=== PATIENT | female | born 1955 | race Hispanic/Latino ===

== ENCOUNTER 2020-02-25 13:23 | Observation (INO) | payer OTHER ==
[~2020-02-25] VITALS: Ht 157.5 cm; Wt 63.5 kg
--- NOTE | 2020-02-25 14:38 | Emergency Department Note ---
History of Present Illnes History of Present Illness Chief Complaint: Chest Pain History of Present Illness This is a 65 year old female hx diabetes c/o chest pressure on and off for 3 da ys . 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 Any updates have been documented here. Past Medical History Recent Fever: No Clinical Suspicion of Infectio: No New/Unexplained Change in Ment: No Past Medical History: Diabetes Past Surgical History: None Social History Smoking Cessation: Never Smoker Counseling Performed: No Alcohol Use: Social Any Illegal Drug Use: No TB Exposure/Symptoms: No Physically hurt or threatened: No Family History Family history of heart diseas: No Other Any Pre-Existing Lines (PICC,: No Review of Systems Review of Systems Constitutional: Reports as per HPI EENTM: Reports no symptoms Cardiovascular: Reports chest pain Respiratory: Reports no symptoms Gastrointestinal: Reports no symptoms Genitourinary: Reports no symptoms Musculoskeletal: Reports no symptoms Integumentary: Reports no symptoms Neurological: Reports no symptoms Psychological: Reports no symptoms Endocrine: Reports no symptoms Hematological/Lymphatic: Reports no symptoms Physical Exam Related Data Allergies: Coded Allergies: No Known Allergies (Unverified , 02/25/20) Vital signs reviewed: Yes Physical Exam CONSTITUTIONAL Constitutional: Present well-developed, Present well-nourished HENT HENT: Present normocephalic, Present atraumatic, Present oropharynx clear/moist, Present nose normal HENT L/R: Present left ext ear normal, Present right ext ear normal EYES Eyes: Reports PERRL, Reports conjunctivae normal NECK Neck: Present ROM normal PULMONARY Pulmonary: Present effort normal, Present breath sounds normal CARDIOVASCULAR Cardiovascular: Present regular rhythm, Present heart sounds normal, Present capillary refill normal, Present normal rate GASTROINTESTINAL Abdominal: Present soft, Present nontender, Present bowel sounds normal GENITOURINARY Genitourinary: Present exam deferred SKIN Skin: Present warm, Present dry MUSCULOSKELETAL Musculoskeletal: Present ROM normal NEUROLOGICAL Neurological: Present alert, Present oriented x 3, Present no gross motor or sensory deficits PSYCHOLOGICAL Psychological: Present mood/affect normal, Present judgement normal Results Laboratory Lab results reviewed: Yes Laboratory comments Cardiac markers normal, ddimer ok Imaging Imaging results reviewed: Yes Imaging Comments chest x ray wnl Procedures 12 Lead ECG Interpretation ECG Interpretation : ECG: ECG 1 Date: Feb 25, 2020 Time: 14:18 Prior ECG tracings: reviewed Rhythm: sinus rhythm Rate: normal QRS axis: normal ST segments normal: Yes Clinical Impression: normal ECG Critical Care Time Total Critical Care Time (min): 45 Time ED Physician saw patient: 15:10 Critcal care necessary due to: cardiac failure, other (unstable angina, treated with Lovenox, nitro, ASA, case discussed with Dr Vargas occupational therapy director in patient room) Critcal care time spent by me: develop tx plan w patient/surrogate, discussion w consultants, discussion w primary provider, evaluation patient response to tx, examination of patient, obtaining hx from patient/surrogate, order/perform tx or interventions, order/review laboratory studies, order/review radiographic studies, pulse oximetry, re-evaluation of patient condition Assessment & Plan Medical Decision Making MDM typical chest pain, high risk factor such as age, Diabetes Reassessment Reassessment time: 16:05 Reassessment still has c/p Assessment & Plan Final Impression: (1) Unstable angina Depart Disposition: ADMITTED Home Meds Reported Medications Dapagliflozin/Metformin HCl (Xigduo Xr 5 mg-1,000 mg Tablet) 1 Each Tab.bp.24h, BID 02/25/20 Atorvastatin Calcium (ATORVASTATIN CALCIUM) 20 Mg Tablet, 40 MG PO HS, #30 TAB 02/25/20 Medications in the ED Lovenox, nitro, asa, BB, tylenol. Physician Attestation Provider Attestation high risk for CAD, case d/c with Dr Chairez and ABNER Lew MD Feb 25, 2020 14:38
[2020-02-25] MEDS ORDERED: FAMOTIDINE 20 MG/2 ML VIAL IV ONE (14:45)
[2020-02-25] MEDS ORDERED: ACETAMINOPHEN 325 MG TAB PO ONE (14:45)
[2020-02-25] MEDS ORDERED: NITROGLYCERIN 2% OINT 1 GM PKT TOP ONE (14:45)
--- NOTE | 2020-02-25 15:21 | Diagnostic Imaging Report ---
EXAMINATION: CXR 2 VIEW - HOPD INDICATION: Chest pain COMPARISON: None FINDINGS: LINES/TUBES:None LUNGS:The lungs are well-inflated. No focal consolidation or pulmonary edema. PLEURA:No pleural effusion or pneumothorax. MEDIASTINUM:The cardiomediastinal silhouette appears normal in size and shape. Atherosclerotic calcifications of the thoracic aorta. BONES/SOFT TISSUES:No acute osseous injury. ABDOMEN:No free air under the diaphragm. IMPRESSION: No focal pneumonia or pulmonary edema. Signed by: Yashira Medina MD on 02/25/2020 3:18 PM
[2020-02-25] MEDS ORDERED: ASPIRIN 81 MG CHEW TAB PO ONE (16:15)
[2020-02-25] MEDS ORDERED: ONDANSETRON HCL INJ 2MG/ML 2ML 2 MG/ML VIAL IV PRN ×2 (16:15→17:15)
[2020-02-25] MEDS ORDERED: SODIUM CHLORIDE FLUSH 10 ML SYR INJ PRN (16:15)
[2020-02-25] MEDS ORDERED: MORPHINE SULFATE 2 MG/ML SYR 1ML IV PRN (16:15)
[2020-02-25] MEDS ORDERED: FAMOTIDINE 20 MG TAB PO SCH (16:15)
[2020-02-25] MEDS ORDERED: DEXTROSE 50% SYRINGE 50 ML IV PRN (16:30)
[2020-02-25] MEDS: INSULIN REGULAR, HUMAN 100 UNIT/1 ML 3ML VIAL SQ SCH ×2 (16:30→21:00)
[2020-02-25] MEDS ORDERED: METOPROLOL TARTRATE 50 MG TAB ONE (16:31)
[2020-02-25] MEDS: METOPROLOL TARTRATE 25 MG TAB PO SCH (16:35)
--- NOTE | 2020-02-25 16:59 | NUR ---
[facility] contacted at this time for transport to [facility] for admission. ETA 35-45 min.
[2020-02-25] MEDS ORDERED: XIGDUO XR 5 MG1 EAC1 (17:07)
[2020-02-25] MEDS ORDERED: ATORVASTATIN CA20 MG PO (17:07)
--- NOTE | 2020-02-25 17:11 | NUR ---
Report to ALLYSON Aguiar
[2020-02-25] MEDS ORDERED: ACETAMINOPHEN 325 MG TAB PO PRN (17:15)
[2020-02-25] MEDS ORDERED: METOPROLOL TARTRATE INJ 1 MG/ML VIAL IV PRN (17:15)
[2020-02-25] MEDS ORDERED: ENOXAPARIN SOD INJ 60 MG/0.6 ML SYR SC ONE (17:45)
[2020-02-25] MEDS: NITROGLYCERIN 2% OINT 1 GM PKT TOP SCH (18:00)
--- NOTE | 2020-02-25 19:00 | NUR ---
RECEIVED PATIENT IN BEDSIDE SHIFT REPORT. PATIENT RESTING IN BED AT THIS TIME. NO CHEST PAIN REPORTED. NO S&S OF DISTRESS NOTED. BED LOCKED IN LOWEST POSITION, SIDE RAILS UPX2, CALL LIGHT IN REACH.
[2020-02-25 19:45] VITALS: BP 117/59
[2020-02-25 20:00] VITALS: BP 117/59
--- NOTE | 2020-02-25 20:58 | NUR ---
Cardiology Consult Dictation# [id number]
[2020-02-25] MEDS ORDERED: SIMVASTATIN 40 MG TAB PO SCH (21:00)
[2020-02-25 21:09] LABS: CREATINE KINASE 52 IU/L (29-168)
--- NOTE | 2020-02-25 21:50 | NUR ---
PATIENT SIGNED CONSENT FOR STRESS TEST AT THIS TIME.
--- NOTE | 2020-02-25 22:15 | Consultation ---
DATE OF CONSULTATION: 02/25/2020 Cardiology Consultation REQUESTING PHYSICIAN: Dr. Soriano. REASON FOR CONSULTATION: Chest pain. HISTORY OF PRESENT ILLNESS: This is a 65-year-old woman with history of diabetes mellitus, who presents with complaints of chest pain. The patient reports that she developed chest tightness and pressure on Tuesday evening. This pain occurred intermittently, lasting approximately 5 minutes at a time. She does note this pain is better with sitting up and can be brought on by physical activity. She denies any shortness of breath, nausea, or diaphoresis. There was no radiation. In the ER, the patient reports she was given Pepcid with resolution of her chest pain. REVIEW OF SYSTEMS: Negative except as per HPI. PAST MEDICAL HISTORY: Diabetes mellitus. PAST SURGICAL HISTORY: Denies. ALLERGIES: NO KNOWN DRUG ALLERGIES. MEDICATIONS: Please see medication list. SOCIAL HISTORY: No tobacco, alcohol, or illicit drugs. FAMILY HISTORY: Denies. PHYSICAL EXAMINATION: VITAL SIGNS: Temperature 98.5 degrees, pulse 89, respiratory rate 16, blood pressure 154/73, and oxygen saturation 98%. GENERAL: Awake, alert, well-developed, well-nourished. HEENT: Normocephalic, atraumatic. Pupils equal. No scleral icterus. NECK: Supple. No thyromegaly or cervical lymphadenopathy. No carotid bruits. LUNGS: Clear to auscultation bilaterally. No wheezes or crackles. CARDIOVASCULAR: Normal rate, regular rhythm. No murmur. Normal S1, S2. ABDOMEN: Soft, nontender. EXTREMITIES: No edema. NEUROLOGIC: Nonfocal exam. DIAGNOSTIC DATA: Chest x-ray, no focal pneumonia or pulmonary edema. EKG, normal sinus rhythm, normal ECG. IMPRESSION: 1. Chest pain. 2. Diabetes mellitus. 3. Elevated blood pressure. RECOMMENDATIONS: Trend troponin to rule out myocardial infarction. The patient's chest pain has atypical features, but does have some concerning features. Nuclear stress test is indicated to evaluate for ischemia. Echocardiogram has been ordered. Obtain fasting lipid panel. Assess blood pressure response to initiation of metoprolol and lisinopril, titrate as necessary to achieve blood pressure control. Further records pending test results. Thank you for this consult. We will continue to follow. Veronica Pascal MD ABS/MODL /[id number]
[2020-02-25 22:48] VITALS: BP 117/59
[2020-02-26] VITALS: BP 114/59
[2020-02-26 01:45] LABS: CHOL/HDL RATIO 3.5 (3.0-3.6)
[2020-02-26 02:05] LABS: CREATINE KINASE 51 IU/L (29-168)
[2020-02-26 04:00] VITALS: BP 115/68
[2020-02-26] MEDS: METOPROLOL TARTRATE 25 MG TAB PO SCH ×2 (04:03→18:21)
[2020-02-26 05:52] LABS: BASOPHILS % 0.5 % (0.0-1.0); EOSINOPHILS % 0.9 % (0.0-6.0); HEMATOCRIT 40.6 % (34.2-44.1); HEMOGLOBIN 13.2 g/dL (12.0-16.0); MEAN CORPUSCULAR HEMOGLOBIN 30.5 pg (28-32); MEAN CORPUSCULAR HGB CONC 32.5 g/dL (31-35); MEAN CORPUSCULAR VOLUME 93.8 fL (81-99); MONOCYTES # (AUTO) 0.3 (0.2-0.8); MONOCYTES % 7.4 % (4.4-11.3); NEUTROPHILS # (AUTO) 1.9 (2.1-6.9); PLATELET COUNT 218 x10e3/uL (140-360); RED BLOOD COUNT 4.33 x10e6/uL (3.6-5.1); RED CELL DISTRIBUTION WIDTH 12.8 % (11.7-14.4)
[2020-02-26] MEDS: NITROGLYCERIN 2% OINT 1 GM PKT TOP SCH ×4 (06:00→18:00)
[2020-02-26 06:25] LABS: CREATINE KINASE 51 IU/L (29-168)
[2020-02-26 07:00] LABS: ALANINE AMINOTRANSFERASE 6 IU/L (0-55); ALBUMIN 3.6 g/dL (3.5-5.0); ALKALINE PHOSPHATASE 72 IU/L (40-150); ANION GAP 12.1 mmol/L (8-16); BLOOD UREA NITROGEN 16 mg/dL (7-26); BUN/CREATININE RATIO 20 (6-25); CALCIUM 9.7 mg/dL (8.4-10.2); CARBON DIOXIDE 28 mmol/L (22-29); CHLORIDE 103 mmol/L (98-107); EST GLOMERULAR FILTRATION RATE > 60 ML/MIN (60-); GLUCOSE 108 mg/dL (74-118); PHOSPHORUS 3.7 MG/DL (2.3-4.7); POTASSIUM 4.1 mmol/L (3.5-5.1); SODIUM 139 mmol/L (136-145)
[2020-02-26 07:20] LABS: THYROID STIMULATING HORMONE 1.536 uIU/mL (0.350-4.940)
[2020-02-26] MEDS: INSULIN REGULAR, HUMAN 100 UNIT/1 ML 3ML VIAL SQ SCH ×3 (07:30→16:30)
[2020-02-26 07:40] VITALS: BP 130/66
[2020-02-26 08:50] VITALS: BP 130/66
[2020-02-26] MEDS ORDERED: LISINOPRIL 10 MG TAB PO SCH (09:00)
[2020-02-26] MEDS ORDERED: FAMOTIDINE 20 MG TAB PO SCH (09:00)
[2020-02-26] MEDS ORDERED: ASPIRIN 325 MG TAB EC PO SCH (09:00)
--- NOTE | 2020-02-26 09:35 | NUR ---
patient resting in bed alert with no distress, daughter at bed side,on NPO for stress test, denies any Chest pain or SOB, keep monitoring
--- NOTE | 2020-02-26 10:15 | NUR ---
ASSESSMENT: Spiritual concern Pt worried about source of illness. Pt's daughter at bedside. Pt waiting for imaging test. Intervention: Fashion Buyer provided hospitality and prayer. Outcome: Pt & daughter expressed appreciation for visit. No need to follow at this time. GINA PATE Fashion Buyer Spiritual Care Department O: [phone]
[2020-02-26 11:00] VITALS: BP 120/60
[2020-02-26] MEDS ORDERED: REGADENOSON 0.4 MG/5 ML SYR IV ONE (13:29)
--- NOTE | 2020-02-26 16:09 | NUR ---
Patient back from Stress test stable, Dr Angela Sanchez had rounds, cleared patient to go home,
[2020-02-26] MEDS ORDERED: ASPIRIN ENTERI325 MG PO (18:51)
[2020-02-26] MEDS ORDERED: SIMVASTATIN40 MG PO (18:51)
[2020-02-26] MEDS ORDERED: LOPRESSOR25 MG PO (18:51)
[2020-02-26] MEDS ORDERED: ACETAMINOPHEN325 M1 PO (18:51)
[2020-02-26] MEDS ORDERED: LISINOPRIL10 MG PO (18:51)
[2020-02-26] MEDS ORDERED: FAMOTIDINE20 MG PO (18:51)
[2020-02-26] MEDS ORDERED: ASPIRIN CHEW81 MG PO (19:04)
--- NOTE | 2020-02-26 20:00 | NUR ---
Patient given discharge instructions along with new prescriptions. Daughter at bedside. Patient verbalized understanding. Patient refused WC and walked to private auto alongside daughter. Patient in stable condition. Vital signs WNL.
[2020-02-26] MEDS ORDERED: ATORVASTATIN 20 MG TAB PO SCH (21:00)
--- NOTE | 2020-02-27 02:07 | Discharge Summary ---
CONSULTING PHYSICIAN: Guilherme Galdamez MD. CHIEF COMPLAINT: Chest pressure. HISTORY OF PRESENT ILLNESS: The patient is a 65-year-old female with diabetes, who complains of chest pressure off and on for 3 days prior to admission. She is Albanian-speaking only. Her daughter is currently at the bedside and is bilingual. In the emergency department, she was diagnosed with unstable angina and treated with Lovenox, Tylenol, beta-lane, aspirin and nitroglycerin. The emergency department physician, Dr. Durant spoke with Dr. Pascal with Cardiology in the patient's room. The patient was seen in room 201, in no acute distress last night and without chest pain at that time. PAST MEDICAL HISTORY: Hypertension, hyperlipidemia, and diabetes. PAST SURGICAL HISTORY: No past surgical history. FAMILY HISTORY: Mother had none and father had from intestinal problem. SOCIAL HISTORY: The patient denied any tobacco, alcohol, or illicit drug use. ALLERGIES: NO KNOWN ALLERGIES. MEDICATIONS: The patient takes: 1. Atorvastatin 40 mg p.o. at night. 2. Dapagliflozin/metformin 12/999 mg p.o. b.i.d. at home. ADMITTING DIAGNOSES: 1. Unstable angina. 2. Possible gastroesophageal reflux disease. 3. Controlled hypertension. 4. Hyperlipidemia. 5. Controlled type 2 diabetes mellitus. DISCHARGE DIAGNOSES: 1. Gastroesophageal reflux disease. 2. Controlled hypertension. 3. Hyperlipidemia. 4. Controlled type 2 diabetes mellitus. On admission, temperature 98.5, heart rate 70, blood pressure 154/73, respirations 16, oxygen saturation 98%. Labs were generally within normal limits. On admission, her 12-lead EKG showed normal sinus rhythm with a heart rate of 71, CK-MB less than 1, myoglobin 62.8, troponin I less than 0.05. Subsequent cardiac enzymes were within normal limits. On 02/25 nuclear stress test was normal per Dr. Leana Sanchez interpreting footwear factory worker. On 02/24 at 17:10 p.m. coronavirus PCR remains pending. Chest x-ray showed no focal pneumonia or pulmonary edema. Echocardiogram done on 02/25 shows an ejection fraction of 60%. Today, on the day of discharge, WBC 4.3, hemoglobin 13.2, hematocrit 40.6, platelets 218. Sodium 139, potassium 4.1, chloride 106, CO2 of 28, anion gap 12.1, BUN 16, creatinine 0.88, estimated GFR greater than 60, glucose 108. Hemoglobin A1c 7%, calcium 9.7, phosphorus 3.7, magnesium 2.0, total bilirubin 1.0, AST 13, ALT 6, alkaline phosphatase 72, total bilirubin 7.1, albumin 3.6, TSH 1.536, triglycerides 129, cholesterol 204, LDL 120, HDL 58. Myocardial infarction was ruled out. Troponin was within normal limits. Chest pain and/or pressure was likely due to gastroesophageal reflux disease. The patient will be discharged home on a diabetic diet. Activity level as tolerated. She is to follow up with her PCP in 1-2 weeks and follow up with Dr. Galdamez as directed. The patient's daughter is at the bedside, agrees with discharge, has explained to the patient that if she begins to have any additional signs or symptoms, she can call her PCP and/or come to the emergency department. Plan of care is understood. She will go home on: 1. P.r.n. Tylenol for pain. 2. Aspirin 81 mg p.o. daily. 3. Continue atorvastatin at home. 4. Continue diabetic medication at home. 5. Pepcid 20 mg p.o. q.12 hours. 6. Lisinopril 10 mg p.o. daily. 7. Metoprolol 25 mg p.o. q.12 hours. Dictated by Hamilton Prajapati NP MD DALLIN KimP/MODL /[id number]
== END 2020-02-26 20:02 | disposition home or self-care (01) ==
LOC: FSED 16:35 → ERHOLD 16:44 → MED/SURG2 18:20
PROVIDERS: ADMIT Internal Medicine; ATTEND Internal Medicine
DX: K21.9 Gastro-esophageal reflux disease without esophagitis (principal); E11.9 Type 2 diabetes mellitus without complications; I10 Essential (primary) hypertension; E78.5 Hyperlipidemia, unspecified; Z83.79 Family history of other diseases of the digestive system; R07.89 Other chest pain; Z79.82 Long term (current) use of aspirin; Z79.84 Long term (current) use of oral hypoglycemic drugs
CPT/HCPCS: 36415 ×2; 71046; 78452; 80053 ×2; 80061; 82550 ×2; 82553 ×2; 82948; 83036; 83735; 84100; 84443; 84484 ×2; 85025 ×2; 87635; 93005; 93017; 93306; 96374; 99284; A9502; G0378 ×2; J1650; J2785